=== PATIENT | female | born 1970 | race Caucasian/White ===

== ENCOUNTER 2020-04-29 15:35 | Emergency (ER) | payer MEDICAID ==
[~2020-04-29] VITALS: Ht 154.9 cm; Wt 50.0 kg
[2020-04-29 15:40] VITALS: BP 108/70
[2020-04-29] MEDS ORDERED: ACETAMINOPHEN 325MG TABLET PO ONE (18:00)
== END 2020-04-29 20:44 | disposition home or self-care (01) ==
LOC: ER 15:35
DX: M70.52 Other bursitis of knee, left knee (principal); Y93.89 Activity, other specified
CPT/HCPCS: 73564; 99283

== ENCOUNTER 2022-10-05 13:33 | Emergency (ER) | payer MEDICAID, OTHER ==
[~2022-10-05] VITALS: Ht 165.1 cm; Wt 73.0 kg
[2022-10-05] MEDS ORDERED: ONDANSETRON HCL 4MG/2ML INJ IV STA (14:29)
[2022-10-05] MEDS ORDERED: MORPHINE SULFATE 4 MG/ML CPJ (NOT FOR IM USE) IV STA (14:29)
[2022-10-05] MEDS ORDERED: SODIUM CHLORIDE 0.9% 1,000 ML IV ONE (14:30)
[2022-10-05 14:35] LABS: BASOPHILS % 0.2 % (0.0-2.0); EOSINOPHILS % 0.6 % (0.0-5.0); HEMATOCRIT. 37.1 % (36.0-48.0); HEMOGLOBIN. 12.7 g/dL (12.0-16.0); LYMPHOCYTES % 14.2 % (20.0-50.0); MEAN CORPUSCULAR HEMOGLOBIN 29.8 pg (28.0-32.0); MEAN CORPUSCULAR VOLUME 86.8 fL (81.0-99.0); MEAN PLATELET VOLUME 8.3 fl (7.4-10.4); PLATELET 271 x1000/uL (130-400); RED BLOOD CELL COUNT 4.27 mill/uL (4.2-5.4); RED CELL DISTRIBUTION WIDTH 12.5 % (11.6-14.6)
[2022-10-05 14:39] LABS: CHLORIDE 104 mEq/L (98-107)
[2022-10-05 14:49] LABS: CLARITY URINE CLOUDY (CLEAR); COLOR URINE YELLOW (YELLOW); KETONES URINE 1+ (NEGATIVE); LEUKOCYTE ESTERASE URINE 2+ (NEGATIVE); NITRITE URINE NEGATIVE (NEGATIVE); OCCULT BLOOD URINE 2+ (NEGATIVE); PROTEIN URINE 1+ (NEGATIVE); SPECIFIC GRAVITY URINE 1.013 (1.005-1.030)
[2022-10-05] MEDS ORDERED: IOHEXOL-300 100 ML BOTTLE ONE (17:25)
[2022-10-05] MEDS ORDERED: CEFTRIAXONE 2GM/50ML (ADDEASE) 50 ML IV ONE (17:45)
[2022-10-05] MEDS ORDERED: METRONIDAZOLE 500 MG PREMIX 100 ML IV NR (18:00)
[2022-10-05] MEDS ORDERED: CEFTRIAXONE 2 G in DEXTROSE 5% WATER 50 ML IV NR (18:00)
[2022-10-05 21:39] VITALS: BP 138/64
[2022-10-05] MEDS ORDERED: KETOROLAC 15MG/ML VIAL IM ONE (21:45)
[2022-10-05] MEDS ORDERED: KETOROLAC 15MG/ML VIAL IM NR (22:00)
== END 2022-10-05 22:21 | disposition short-term general hospital (02) ==
LOC: ER 13:33
DX: K57.92 Diverticulitis of intestine, part unspecified, without perforation or abscess without bleeding (principal); E11.9 Type 2 diabetes mellitus without complications; J45.909 Unspecified asthma, uncomplicated
CPT/HCPCS: 36415; 74177; 80053; 81003; 82962; 83690; 85025; 87086; 96365; 96375; 99285; J0696; J2270; J2405; J7030; J7060; Q9967; Z7610